=== PATIENT | male | born 1955 | race Caucasian/White ===

== ENCOUNTER 2020-08-03 09:46 | Inpatient (IN) ==
--- NOTE | 2020-07-02 13:14 | PAT Medication Instructions ---
Medication Instructions Date of Service July 02, 2020 Home Medications diltiazem HCl 240 mg PO QAM omeprazole 40 mg PO QAM Take morning of surgery With a small sip of water, OTHERWISE NOTHING TO EAT OR DRINK AFTER MIDNIGHT: diltiazem HCl 240 mg PO QAM omeprazole 40 mg PO QAM Other Notes If you have any questions please call us at [phone] or [phone] or [phone] or [phone]
--- NOTE | 2020-07-05 11:22 | Anesthesiology Consultation ---
Date of Service July 05, 2020 Assessment & Plan (1) Encounter for pre-operative examination: COVID Status: As of 07/05 assessment, patient denies travel to endemic area, known exposure/sick contacts, or symptoms of COVID19. Patient instructed that they and their household members must follow strict social distancing guidelines, wear a mask in public and avoid travel for 14 days prior to surgery. Preoperative COVID19 testing to be completed prior to surgery per surgeon's arra ngements. Patient made aware to self-isolate as much as possible between COVID testing and surgery. Chart Review Chart Review: Acceptable Risk for Surgery and Patient seen in Pre Admission Testing Teaching & Discussion Instructed NPO after midnight before surgery, except medications with 15 cc of water. Medication instructions provided according to the PAT guidelines. History Surgery Operation Date: 08/03/20 08:35 Proposed Procedures p Right Total Knee Arthroplasty - Pranay Pardo DO Height/Weight Height: 5 ft 8 in Weight: 101.1 kg Allergies Allergy/AdvReac Type Severity Reaction Status Date / Time No Known Allergies Allergy Verified 06/29/20 09:17 Medications Home Medications Medication Instructions Recorded Confirmed Last Taken diltiazem HCl 240 mg PO QAM 06/29/20 06/29/20 Unknown omeprazole 40 mg PO QAM 06/29/20 06/29/20 Unknown Past Medical History Medical History GERD (gastroesophageal reflux disease) Hypertension Exercise / Class Metabolic Activity II 4-5 Yardwork/Stairs/Walk up hill (Does 1 FOS many times daily without limiting CP or SOB) Past Surgical History Surgical History History of colonoscopy X MULTIPLE Past Anesthesia History No Hx of Anesthesia Complications and No Family Hx of Anesthesia Complications History of PONV No Hx of PONV and No Hx of Motion Sickness Social History Smoking Status: Never smoker Do You Dip or Chew Tobacco: No Hx Alcohol Use: No Hx Substance Use: No Review of Systems +occasional heart palpitations Pt denies any recent chest pain, shortness of breath, cough, fever, URI, or uncontrolled acid reflux. Physical Exam Vital Signs BP: 164/90 P: 62bpm SPO2: 97% RA T: 98.2 F R: 16 ENMT Mouth: no dental restorations, no chipped teeth and no loose teeth Thyromental Distance: > or= 3.5 Finger Breadths (3.5) Mallampati Class: I Neck normal visual inspection; neck extension not limited Respiratory normal respiratory effort Auscultation: lungs clear to auscultation bilaterally Cardiovascular Rate/Rhythm: regular rhythm and + bradycardic Heart Sounds: no murmur Vessels: no carotid bruit Extremities: no edema Testing Laboratory Results 07/05/20 11:35 07/05/20 11:35 PT 10.8 Seconds (9.0-12.0) 07/05/20 11:35 INR 1.0 (0.9-1.1) 07/05/20 11:35 APTT 30.8 Seconds (21.0-31.0) 07/05/20 11:35 Hemoglobin A1c 5.5 % (4.5-5.6) 07/05/20 11:35 Urine Color Yellow 07/05/20 11:35 Urine Appearance Clear (Clear) 07/05/20 11:35 Urine pH 6.0 (4.5-7.5) 07/05/20 11:35 Ur Specific [place] 1.016 (1.000-1.030) 07/05/20 11:35 Urine Protein Negative (Negative) 07/05/20 11:35 Urine Glucose (UA) Negative (Negative) 07/05/20 11:35 Urine Ketones Negative (Negative) 07/05/20 11:35 Urine Nitrite Negative (Negative) 07/05/20 11:35 Ur Leukocyte Esterase Negative (Negative) 07/05/20 11:35 Blood Type A Positive 07/05/20 11:35 Antibody Screen NEGATIVE 07/05/20 11:35 *surgeon's office flagged re: elevated WBC count. Electrocardiogram Date: 07/05/20 Findings: + SB @ (56bpm) Chest X-Ray Date: 07/05/20 Findings: + NAD
--- NOTE | 2020-07-05 11:55 | XRay Report ---
XR chest Pre-admission PA/Lat CLINICAL HISTORY: pat preoperative COMPARISON STUDY: No previous studies for comparison. FINDINGS: The bones soft tissues and hemidiaphragms are normal. The cardiomediastinal silhouette is n ormal. The lungs are clear. The pulmonary vasculature is normal. IMPRESSION: Negative chest. ACT 112: Negative or not required by law. The above report was generated using voice recognition software. It may contain grammatical, syntax or spelling errors. Electronically signed by: Angel Lala M.D. 07/05/2020 11:53 AM
[2020-07-05 13:22] LABS: Basophils # (auto) 0.01 K/uL (0-0.2); Basophils % (auto) 0.1 %; Eosinophils # (auto) 0.05 K/uL (0-0.5); Eosinophils % (auto) 0.4 %; Hematocrit (blood only) 47.4 % (42-52); Hemoglobin 16.5 g/dL (14.0-18.0); Immature Granulocytes # (auto) 0.06 K/uL (0.00-0.02); Immature Granulocytes % (auto) 0.5 %; Lymphocytes # (auto) 3.02 K/uL (1.2-3.4); Lymphocytes % (auto) 23.9 %; Mean Corpuscular Hemoglobin 30.8 pg (25-34); Mean Corpuscular Hgb Conc 34.8 g/dL (32-36); Mean Corpuscular Volume 88.4 fL (80-100); Mean Platelet Volume 10.9 fL (7.4-10.4); Monocytes # (auto) 1.53 K/uL (0.11-0.59); Monocytes % (auto) 12.1 %; Neutrophils # (auto) 7.99 K/uL (1.4-6.5); Platelet Count 233 K/uL (130-400); RDW Coefficient of Variation 14.5 % (11.5-14.5); RDW Standard Deviation 46.8 fL (36.4-46.3); Red Blood Count 5.36 M/uL (4.7-6.1); White Blood Count 12.66 K/uL (4.8-10.8)
[2020-07-05 13:30] LABS: Appearance Urine Clear (Clear); Bilirubin Urine Negative (Negative); Blood Urine Negative (Negative); Color Urine Yellow; Glucose Urine UA Negative (Negative); Ketones Urine Negative (Negative); Leukocyte Esterase Urine Negative (Negative); Nitrite Urine Negative (Negative); Protein Urine Negative (Negative); Specific Gravity Urine 1.016 (1.000-1.030); Urobilinogen Urine Negative (Negative)
[2020-07-05 13:34] LABS: Partial Thromboplastin Ratio 1.1; Partial Thromboplastin Time 30.8 Seconds (21.0-31.0); Prothrombin Time 10.8 Seconds (9.0-12.0)
[2020-07-05 13:36] LABS: Albumin Level 3.7 gm/dl (3.4-5.0); BUN Creatinine Ratio 20.9 (10-20); Creatinine Clr Calc Pharmacy 80.8 ml/min; Est GFR (African American) 85.9; Est GFR (Non-African American) 74.1; Potassium 3.7 mmol/L (3.5-5.1)
[2020-07-05 14:14] LABS: Estimated Average Glucose 111 mg/dl; Hemoglobin A1C 5.5 % (4.5-5.6)
--- NOTE | 2020-07-05 22:47 | Electrocardiogram Report ---
Test Reason : Blood Pressure : / mmHG Vent. Rate : 056 BPM Atrial Rate : 056 BPM P-R Int : 160 ms QRS Dur : 082 ms QT Int : 424 ms P-R-T Axes : 056 065 028 degrees QTc Int : 409 ms Sinus bradycardia Otherwise normal ECG No previous ECGs available Confirmed by Jaya Singh ([id number]) on 07/05/2020 10:46:47 PM Referred By: Pranay Pardo Confirmed By:Jaya Singh
--- NOTE | 2020-07-16 08:55 | History & Physical Report ---
Date of Service July 16, 2020 date of procedure: 08/03/20 Procedure: Right Total Knee Arthroplasty Assessment & Plan (1) Arthritis of right knee: patient has advanced DJD bilateral knees, has had previous visco x 2 series without any relief, his right knee is his most painful, he would like to proceed with a Right TKA at [facility]. The risks and benefits have been discussed including, but not limited to, risk of infection, nerve injury, stiffness, loss of motion, failure to improve, etc. Reasonable outcomes and options of treatment were discussed. An explanation of appropriate alternatives to the procedure that may be advantageous were discussed and their risks and benefits, as well as the risks and benefits of not proceeding with treatment. I offered to answer any additional inquiries concerning the treatment involved. All the patient's questions were answered. The patient is agreeable, understanding of the treatment plan and alternatives, and wishes to proceed with the treatment plan. History of Present Illness Chief Complaint: Right knee pain Primary Care Provider: Mecca George Obey Whitehead is a 65 year old male, presents for pre op prior to a right total knee replacement at [facility]. He presents with pain and stiffness in the right knee for many years, He states that the symptoms have been chronic non-traumatic. His symptoms occur constantly with intermittent worsening. Currently the patient states that the symptoms are moderate and his pain is described as aching and sometimes sharp. He rates his current pain as 6/10. The symptoms are aggravated by daily activities. He has previous visco injections without much relief, has tried previous NSAIDs as well as tylenol without relief. Allergies Allergy/AdvReac Type Severity Reaction Status Date / Time No Known Allergies Allergy Verified 06/29/20 09:17 Home Medications Home Medications Medication Instructions Recorded Confirmed Type diltiazem HCl 240 mg PO QAM 06/29/20 06/29/20 History omeprazole 40 mg PO QAM 06/29/20 06/29/20 History Past Med/Surg History Medical History GERD (gastroesophageal reflux disease) Hypertension Surgical History History of colonoscopy X MULTIPLE Social History Smoking Status: Never smoker Second Hand Exposure: Yes (FATHER SMOKED); Hx Alcohol Use: No Hx Substance Use: No Preferred Language: British Communication Ability: Effective Foreign Food Cook Specialty Required: No Beliefs That Will Affect Care: None Current Living Situation: Spouse Feels Safe at Home: Yes Review of Systems Review of Systems: All systems reviewed & are unremarkable except as noted in HPI & below Constitutional: no fever, no chills and no sweats Respiratory: no cough and no dyspnea Cardiovascular: no chest pain, no dyspnea and no orthopnea Gastrointestinal: no abdominal pain, no nausea and no vomiting Musculoskeletal: as per Subjective / HPI Physical Exam Physical Exam: Ht: 5ft 8in Wt: 101.1kg Constitutional: WD/WN, vitals as above no acute distress Respiratory: normal respiratory effort, lungs clear to auscultation no respiratory distress, no labored breathing and does not use accessory muscles Cardiovascular: RRR, no murmur, no edema Gastrointestinal (Abdomen): normal bowel sounds, soft, nontender, no hepatosplenomegaly Musculoskeletal: Knee: + knee abnormal to inspection (Right knee- ), + effusion (+1 effusion), + limited ROM of knee (ROM 0/3/110), + knee ROM with crepitation, + joint line tenderness (medial joint line) and + Cathleen's sign positive; no deformity, no skin erythema, no ecchymosis, no valgus laxity, no varus laxity, anterior drawer test negative, Lyndsay's sign negative and pivot shift test negative Results & Data Results & Data ([facility]) Laboratory Results Laboratory Results WBC 12.66 K/uL (4.8-10.8) H 07/05/20 11:35 RBC 5.36 M/uL (4.7-6.1) 07/05/20 11:35 Hgb 16.5 g/dL (14.0-18.0) 07/05/20 11:35 Hct 47.4 % (42-52) 07/05/20 11:35 MCV 88.4 fL (80-100) 07/05/20 11:35 MCH 30.8 pg (25-34) 07/05/20 11:35 MCHC 34.8 g/dL (32-36) 07/05/20 11:35 RDW Std Deviation 46.8 fL (36.4-46.3) H 07/05/20 11:35 RDW Coeff of Mayelin 14.5 % (11.5-14.5) 07/05/20 11:35 Plt Count 233 K/uL (130-400) 07/05/20 11:35 MPV 10.9 fL (7.4-10.4) H 07/05/20 11:35 Immature Gran % (Auto) 0.5 % 07/05/20 11:35 Neut % (Auto) 63.0 % 07/05/20 11:35 Lymph % (Auto) 23.9 % 07/05/20 11:35 Carbon % (Auto) 12.1 % 07/05/20 11:35 Eos % (Auto) 0.4 % 07/05/20 11:35 Baso % (Auto) 0.1 % 07/05/20 11:35 Neut # (Auto) 7.99 K/uL (1.4-6.5) H 07/05/20 11:35 Lymph # (Auto) 3.02 K/uL (1.2-3.4) 07/05/20 11:35 Carbon # (Auto) 1.53 K/uL (0.11-0.59) H 07/05/20 11:35 Eos # (Auto) 0.05 K/uL (0-0.5) 07/05/20 11:35 Baso # (Auto) 0.01 K/uL (0-0.2) 07/05/20 11:35 Immature Gran # (Auto) 0.06 K/uL (0.00-0.02) H 07/05/20 11:35 PT 10.8 Seconds (9.0-12.0) 07/05/20 11:35 INR 1.0 (0.9-1.1) 07/05/20 11:35 APTT 30.8 Seconds (21.0-31.0) 07/05/20 11:35 PTT Ratio 1.1 07/05/20 11:35 Sodium 141 mmol/L (136-145) 07/05/20 11:35 Potassium 3.7 mmol/L (3.5-5.1) 07/05/20 11:35 Chloride 108 mmol/L (98-107) H 07/05/20 11:35 Carbon Dioxide 25 mmol/L (21-32) 07/05/20 11:35 Anion Gap 8.0 (3-11) 07/05/20 11:35 BUN 22 mg/dl (7-18) H 07/05/20 11:35 Creatinine 1.05 mg/dl (0.6-1.4) 07/05/20 11:35 Est Cr Clr Drug Dosing 80.8 ml/min 07/05/20 11:35 Est GFR ( Amer) 85.9 07/05/20 11:35 Est GFR (Non-Af Amer) 74.1 07/05/20 11:35 BUN/Creatinine Ratio 20.9 (10-20) H 07/05/20 11:35 Glucose 70 mg/dl (70-99) 07/05/20 11:35 Estimat Average Glucose 111 mg/dl 07/05/20 11:35 Hemoglobin A1c 5.5 % (4.5-5.6) 07/05/20 11:35 Calcium 9.0 mg/dl (8.5-10.1) 07/05/20 11:35 Albumin 3.7 gm/dl (3.4-5.0) 07/05/20 11:35 Urine Color Yellow 07/05/20 11:35 Urine Appearance Clear (Clear) 07/05/20 11:35 Urine pH 6.0 (4.5-7.5) 07/05/20 11:35 Ur Specific [place] 1.016 (1.000-1.030) 07/05/20 11:35 Urine Protein Negative (Negative) 07/05/20 11:35 Urine Glucose (UA) Negative (Negative) 07/05/20 11:35 Urine Ketones Negative (Negative) 07/05/20 11:35 Urine Blood Negative (Negative) 07/05/20 11:35 Urine Nitrite Negative (Negative) 07/05/20 11:35 Urine Bilirubin Negative (Negative) 07/05/20 11:35 Urine Urobilinogen Negative (Negative) 07/05/20 11:35 Ur Leukocyte Esterase Negative (Negative) 07/05/20 11:35 Blood Type A Positive 07/05/20 11:35 Antibody Screen NEGATIVE 07/05/20 11:35 Diagnostic Findings Right Knee X-ray: Right knee series showing advanced degenerative changes to the right knee, narrowing of the medial compartment and patello-femoral joint with patellar spurring noted, findings showing joint space narrowing of the medial compartment and patello-femoral joint, osteophyte formation and subchondral sclerosis noted. overall varus alignment. no acute bony pathology noted.
[~2020-08-03 09:46] MED LIST: ACETAMINOPHEN 500 MG TAB PO SCH; BUPIVACAINE 0.5 % 5 MG/1 ML PF 10ML VIAL ONE; CEFAZOLIN 2000MG 2,000 MG/15 ML SYR IV SCH; CeleBREX 200 MG CAP PO SCH; EPINEPHrine INJ 1 MG/ML AMP ONE; FAMOTIDINE 20 MG TAB PO SCH; GABAPENTIN 300 MG CAP PO SCH; LR 500ML BOLUS, THEN 15ML/HR IV SCH; METOCLOPRAMIDE HCL 10 MG TABLET PO SCH; ROPIVACAINE 0.5% 5 MG/ML 30 ML VIAL ONE; ROPIVACAINE 0.5% HCL/PF 150 MG, BUPIVACAINE 0.5% MPF 30 ML, EPINEPHrine 30MG/30ML (OR U... INSTIL SCH; TRANEXAMIC ACID 1,000 MG **IV Intra-op IV SCH; TRANEXAMIC ACID 1,000 MG **IV Pre-op IV SCH; dexAMETHasone 4 MG TAB PO SCH
[2020-08-03] MEDS ORDERED: LIDOCAINE HCL 2% 2 ML VIAL/AMP(20MG/ML) INFIL ONE (10:44)
[2020-08-03] MEDS ORDERED: PROPOFOL IV EMULSION 10 MG/ML 20 ML VIAL IV ONE (10:44)
[2020-08-03] MEDS ORDERED: fentaNYL citrate 100 MCG/2 ML VIAL ONE ×2 (10:45→13:15)
[2020-08-03] MEDS ORDERED: MIDAZOLAM HCL 1 MG/ML 2ML VIAL ONE ×2 (10:45→11:43)
--- NOTE | 2020-08-03 11:14 | History & Physical Bridge Note ---
Date of Service August 03, 2020 History & Physical Bridge Note I have examined the patient, reviewed the History & Physical and in the interval since the performance of the History & Physical I have noted the following changes of clinical significance: no changes noted
[2020-08-03] MEDS ORDERED: ORTHO JOINT ANESTHETIC ONE (11:43)
[2020-08-03] MEDS ORDERED: BACITRACIN INJ 50,000 UNIT VIAL ONE (11:44)
[2020-08-03] MEDS ORDERED: ATROPINE SULFATE 0.1 MG/ML 10ML SYR IV PRN (13:32)
[2020-08-03] MEDS ORDERED: ONDANSETRON INJ 2 MG/ML 2 ML VIAL IV PRN ×2 (13:32→15:37)
[2020-08-03] MEDS ORDERED: fentaNYL citrate 100 MCG/2 ML VIAL IV PRN (13:32)
[2020-08-03] MEDS ORDERED: PROMETHAZINE HCL 12.5 MG in SODIUM CHLORIDE 0.9% 50 ML IV PRN (13:32)
[2020-08-03] MEDS ORDERED: LABETALOL HCL IV 5 MG/ML 20ML IV PRN (13:32)
[2020-08-03] MEDS ORDERED: FLUMAZENIL 0.1 MG/1 ML 10 ML VIAL IV PRN (13:32)
[2020-08-03] MEDS ORDERED: NALOXONE HCL 0.4 MG/1 ML VIAL/CARP IV PRN ×2 (13:32→15:37)
[2020-08-03] MEDS ORDERED: HYDROmorphone INJ 1 MG/ML SYRINGE IV PRN ×2 (13:32→15:37)
[2020-08-03] MEDS ORDERED: ePHEDrine sulfate 50 MG/ML AMP IV PRN (13:32)
--- NOTE | 2020-08-03 13:51 | Operative Report ---
Post Operative Report Pre & Post Diagnosis Operation Date: 08/03/20 12:35 Pre-Op Diagnosis: Unilateral Primary Osteoarthritis, Right Knee Post-Op Diagnosis: Unilateral Primary Osteoarthritis, Right Knee I identified the patient and participated in the time-out.: Yes Procedure Operation Date: 08/03/20 12:35 Actual Procedures p Right Total Knee Arthroplasty(Right) utilizing [employer] journey 2 patient matched total knee arthroplasty size 5 femur 4 tibia 13 polyethylene 32 oval patella- Pranay Pardo DO Surgeon Pranay Pardo DO Senior Managing Director [place] Estimated Blood Loss 5 Findings Consistent with Post-Op Diagnosis Patient resents severe end-stage DJD varus alignment subchondral sclerosis marginal osteophytes eburnated [id number] with a varus alignment and a moderate to large effusion Specimens Bone and cartilage Drains Medium bore Hemovac Anesthesia Type General Complications none Disposition Accompanied Patient To Recovery: No Disposition: Recovery Room Indications Patient presents with severe end-stage DJD of the right knee no response to conservative management the patient fell attempted corticosteroid injection Visco supplementation relative rest activity modification patient resents for right total knee arthroplasty the above intraoperative findings were noted Description of Procedure After proper prepping and draping of the Right lower extremity anterior midline incision was made over the region of the extensor extensor mechanism after meticulous hemostasis was obtained and maintained in subcutaneous tissues a medial parapatellar incision was made The patella was subluxed lateralward the medial lateral gutter were cleaned from any hypertrophic synovitis and scar tissue of the distal femoral block was placed and the distal femoral osteotomy cut was made subsequently the chamfers anterior and posterior osteotomy cuts were made utilizing the 4-in-1 block the tibia was subsequently subluxed anteriorward medial and ateral meniscal remnants were excised in their entirety remnants of the anterior and posterior cruciate ligaments were excised in their entirety excellent exposure of the proximal tibia was obtained the tibial osteotomy guide was placed on the proximal tibial osteotomy cut was made once again the knee was irrigated with copious amounts of sterile saline solution the patella was subsequently everted lateralward thickened scar tissue around the patella was removed the patella was subsequently cut utilizing a freehand technique and was drilled prepared for final preparation and placement of patella socially flexion-extension gaps were checked and the equal and symmetric trials were placed to the appropriate femoral and tibial trials with poly-spacer being placed for equal flexion and extension gaps and full range of motion including extension to 0 and flexion to 140 the trial components after having been taken to recovery range of motion was subsequently removed meticulous hemostasis was obtained and maintained subsequently a knee block injection of joint cocktail including ropivacaine 0.5% 150 mg. Bupivacaine 0.5% epinephrine 1-200,030 mL's toradol 30 mg dexamethasone 4 mg ketamine 10 mg clonidine 100 micrograms normal saline solution 30 mg was infiltrated into the soft tissues of the posterior knee medial lateral gutters and periosteal synovium special attention was paid to protect neurovascular structures at all times subsequently trial components having been removed the knee was irrigated with sterile saline solution. debris was removed the proximal tibia was subsequently prepared and was made ready for the placement of the tibial component tibial component was also cemented and tamped into position the femoral component was subsequently placed and cemented in the position the patellar component was subsequently cemented in position because hemostasis once again obtained and maintained wound having been thoroughly irrigated with debridement and debridement lavage was performed as well as a medial parapatellar incision closed with #1 Vicryl in interrupted fashion subcutaneous was closed with #2 Vicryl skin was closed with skin clips. PA-C was necessary for prepping and drapping as well as wound closure of deep fascia Sub cutaneous tissue and skin and was necessary for the case. A sterile compressive dressing was placed patient was taken to recovery in stable condition of report dictated by Edvin I attest to the content of the Intraoperative Record and any orders documented therein. Any exceptions are noted below. I attest to the content of the Intraoperative Record and any orders documented therein. Any exceptions are noted below.
[2020-08-03] MEDS ORDERED: ONDANSETRON INJ 2 MG/ML 2 ML VIAL ONE (14:07)
--- NOTE | 2020-08-03 15:06 | Anesthesiology Progress Note ---
Date of Service August 03, 2020 Anesthesia Post Procedure Vital Signs Vital Signs: Temp Pulse Pulse Resp BP Pulse Ox 08/03/20 14:40 77 12 124/69 94 08/03/20 14:33 98.6 F 89 17 108/74 92 08/03/20 11:21 98.1 F 71 18 154/89 H 96 08/03/20 10:03 98.4 F 73 18 177/94 H 96 Pain Intensity Right Knee: Pain Intensity: 4 Transfer of Care Handoff Completed per policy Notes Mental Status: alert / awake / arousable and participated in evaluation Patient Amnestic to Procedure: Yes Nausea / Vomiting: adequately controlled Pain: adequately controlled Airway Patency, RR, SpO2: stable & adequate BP & HR: stable & adequate Hydration State: stable & adequate Anesthetic Complications: no major complications apparent and Pt Satisfied with anesthetic care
--- NOTE | 2020-08-03 15:16 | XRay Report ---
RIGHT KNEE 2 VIEWS History: Right total knee arthroplasty. Degenerative arthritis. Postop. FINDINGS: The patient is status post a right total knee arthroplasty. The hardware is intact. No frac ture or dislocation. Surgical drains are in place. IMPRESSION: Right total knee arthroplasty. No evidence for hardware complication. ACT 112: Negative or not required by law. Electronically signed by: Maurizio Albrecht M.D. 08/03/2020 3:14 PM
[2020-08-03] MEDS ORDERED: bisacodyL 10 MG SUPP PR PRN (15:37)
[2020-08-03] MEDS ORDERED: OXYCODONE HCL IR 5 MG TAB (IMMEDIATE RELEASE) PO PRN (15:37)
[2020-08-03] MEDS ORDERED: MAGNESIUM HYDROXIDE SUSP 30 ML UDC PO PRN (15:37)
[2020-08-03] MEDS ORDERED: METOCLOPRAMIDE HCL INJ 5 MG/ML 2 ML VIAL IV PRN (15:37)
[2020-08-03] MEDS: SODIUM CHLORIDE 0.9% 1000ML 1,000 ML IV SCH (16:34)
[2020-08-03] MEDS: KETOROLAC TROMETHAMINE 15 MG/ML VIAL IV SCH (17:11)
[2020-08-03] MEDS: DOCUSATE SODIUM 100 MG CAP PO SCH (20:21)
[2020-08-03] MEDS: CEFAZOLIN 2000MG 2,000 MG/15 ML SYR IV SCH (20:21)
[2020-08-03] MEDS: ASPIRIN 81 MG ECTAB PO SCH (20:22)
[2020-08-03] MEDS ORDERED: SENNA 8.6 MG TAB PO SCH (21:00)
[2020-08-03] MEDS: ACETAMINOPHEN 500 MG TAB PO SCH (21:51)
[2020-08-04] MEDS: KETOROLAC TROMETHAMINE 15 MG/ML VIAL IV SCH ×3 (00:32→11:45)
[2020-08-04] MEDS: SODIUM CHLORIDE 0.9% 1000ML 1,000 ML IV SCH (02:06)
[2020-08-04] MEDS: CEFAZOLIN 2000MG 2,000 MG/15 ML SYR IV SCH (03:19)
[2020-08-04] MEDS: ACETAMINOPHEN 500 MG TAB PO SCH (05:42)
[2020-08-04 06:30] LABS: Hematocrit (blood only) 42.9 % (42-52); Hemoglobin 14.6 g/dL (14.0-18.0); Mean Corpuscular Hemoglobin 30.2 pg (25-34); Mean Corpuscular Volume 88.8 fL (80-100); Mean Platelet Volume 10.2 fL (7.4-10.4); Platelet Count 233 K/uL (130-400); RDW Coefficient of Variation 14.3 % (11.5-14.5); RDW Standard Deviation 46.5 fL (36.4-46.3); Red Blood Count 4.83 M/uL (4.7-6.1); White Blood Count 17.74 K/uL (4.8-10.8)
[2020-08-04 06:58] LABS: BUN Creatinine Ratio 18.4 (10-20); Calcium 8.5 mg/dl (8.5-10.1); Creatinine Clr Calc Pharmacy 74.4 ml/min; Est GFR (African American) 77.8; Est GFR (Non-African American) 67.1; Potassium 4.3 mmol/L (3.5-5.1)
--- NOTE | 2020-08-04 07:37 | Orthopedic Progress Note ---
Date of Service August 04, 2020 Assessment & Plan (1) History of total right knee replacement: POD #1 s/p Right TKA pt/ot dvt proph with [facility]/SCD/ASA plan for d/c home with HHPT, recheck later today for poss discharge. Admission and Anticipated Discharge Date Admission Date: August 03, 2020 Subjective POD #1 s/p Right TKA Review of Systems Constitutional: no fever, no chills and no sweats Respiratory: no cough and no dyspnea Cardiovascular: no chest pain and no dyspnea Gastrointestinal: no abdominal pain, no nausea and no vomiting Physical Exam Physical Exam: Vital Signs Temp 36.8 C 08/04/20 07:02 Pulse 86 08/04/20 07:02 Resp 16 08/04/20 07:02 BP 166/80 H 08/04/20 07:02 Pulse Ox 95 08/04/20 07:02 Intake & Output 08/03/20 08/04/20 08/04/20 18:59 06:59 18:59 Intake Total 1800 / 3500 1700 / 3500 Output Total 345 / 2145 1800 / 2145 200 / 200 Balance 1455 / 1355 -100 / 1355 -200 / -200 Weight 101 kg Intake: IV 1000 / 2000 1000 / 2000 Lr 1,000 ml @ 15 mls/hr IV . 800 / 800 Q24H [facility] Rx#:[id number] Nss 1000ML 1,0 00 ml @ 100 mls/ 1000 / 1000 hr IV .Q10H [facility] Rx#:[id number] TRANEXAMIC ACI D / 0.7% NACL 1, 200 / 200 000 mg In 100 ml @ 600 mls/hr IV TODAY@0600 [facility] Rx#:[id number] IV Perioperative 500 / 500 Oral 300 / 1000 700 / 1000 Output: Urine 300 / 1825 1525 / 1825 200 / 200 Estimated Blood Loss 5 / 5 Drain Output 40 / 315 275 / 315 Right Knee 40 / 315 275 / 315 Constitutional: WD/WN, vitals as above no acute distress Musculoskeletal: Right Leg: NVDI, calf SNT, negative shaina sign. DP palpable, able to wiggle toes/ankle movement without difficulty. dressing clean dry and intact. Results & Data ([facility]) Vital Signs (Past 12 Hours) Vital Signs Temp Pulse Pulse Resp BP Pulse Ox 08/04/20 07:02 36.8 C 86 16 166/80 H 95 08/04/20 03:07 37.0 C 71 18 117/69 93 08/03/20 23:17 36.9 C 68 18 124/68 91 Laboratory Results Laboratory Results WBC 17.74 K/uL (4.8-10.8) H 08/04/20 05:55 RBC 4.83 M/uL (4.7-6.1) 08/04/20 05:55 Hgb 14.6 g/dL (14.0-18.0) 08/04/20 05:55 Hct 42.9 % (42-52) 08/04/20 05:55 MCV 88.8 fL (80-100) 08/04/20 05:55 MCH 30.2 pg (25-34) 08/04/20 05:55 MCHC 34.0 g/dL (32-36) 08/04/20 05:55 RDW Std Deviation 46.5 fL (36.4-46.3) H 08/04/20 05:55 RDW Coeff of Mayelin 14.3 % (11.5-14.5) 08/04/20 05:55 Plt Count 233 K/uL (130-400) 08/04/20 05:55 MPV 10.2 fL (7.4-10.4) 08/04/20 05:55 Immature Gran % (Auto) 0.5 % 07/05/20 11:35 Neut % (Auto) 63.0 % 07/05/20 11:35 Lymph % (Auto) 23.9 % 07/05/20 11:35 [place] % (Auto) 12.1 % 07/05/20 11:35 Eos % (Auto) 0.4 % 07/05/20 11:35 Baso % (Auto) 0.1 % 07/05/20 11:35 Neut # (Auto) 7.99 K/uL (1.4-6.5) H 07/05/20 11:35 Lymph # (Auto) 3.02 K/uL (1.2-3.4) 07/05/20 11:35 [place] # (Auto) 1.53 K/uL (0.11-0.59) H 07/05/20 11:35 Eos # (Auto) 0.05 K/uL (0-0.5) 07/05/20 11:35 Baso # (Auto) 0.01 K/uL (0-0.2) 07/05/20 11:35 Immature Gran # (Auto) 0.06 K/uL (0.00-0.02) H 07/05/20 11:35 PT 10.8 Seconds (9.0-12.0) 07/05/20 11:35 INR 1.0 (0.9-1.1) 07/05/20 11:35 APTT 30.8 Seconds (21.0-31.0) 07/05/20 11:35 PTT Ratio 1.1 07/05/20 11:35 Sodium 140 mmol/L (136-145) 08/04/20 05:55 Potassium 4.3 mmol/L (3.5-5.1) 08/04/20 05:55 Chloride 110 mmol/L (98-107) H 08/04/20 05:55 Carbon Dioxide 23 mmol/L (21-32) 08/04/20 05:55 Anion Gap 7.0 (3-11) 08/04/20 05:55 BUN 21 mg/dl (7-18) H 08/04/20 05:55 Creatinine 1.14 mg/dl (0.6-1.4) 08/04/20 05:55 Est Cr Clr Drug Dosing 74.4 ml/min 08/04/20 05:55 Est GFR ( Amer) 77.8 08/04/20 05:55 Est GFR (Non-Af Amer) 67.1 08/04/20 05:55 BUN/Creatinine Ratio 18.4 (10-20) 08/04/20 05:55 Glucose 125 mg/dl (70-99) H 08/04/20 05:55 Estimat Average Glucose 111 mg/dl 07/05/20 11:35 Hemoglobin A1c 5.5 % (4.5-5.6) 07/05/20 11:35 Calcium 8.5 mg/dl (8.5-10.1) 08/04/20 05:55 Albumin 3.7 gm/dl (3.4-5.0) 07/05/20 11:35 Urine Color Yellow 07/05/20 11:35 Urine Appearance Clear (Clear) 07/05/20 11:35 Urine pH 6.0 (4.5-7.5) 07/05/20 11:35 Ur Specific [place] 1.016 (1.000-1.030) 07/05/20 11:35 Urine Protein Negative (Negative) 07/05/20 11:35 Urine Glucose (UA) Negative (Negative) 07/05/20 11:35 Urine Ketones Negative (Negative) 07/05/20 11:35 Urine Blood Negative (Negative) 07/05/20 11:35 Urine Nitrite Negative (Negative) 07/05/20 11:35 Urine Bilirubin Negative (Negative) 07/05/20 11:35 Urine Urobilinogen Negative (Negative) 07/05/20 11:35 Ur Leukocyte Esterase Negative (Negative) 07/05/20 11:35 Hepatitis C Ab Screen Neg (Neg) 08/03/20 10:10 Blood Type A Positive 07/05/20 11:35 Antibody Screen NEGATIVE 07/05/20 11:35 Diagnostic Findings RIGHT KNEE 2 VIEWS History: Right total knee arthroplasty. Degenerative arthritis. Postop. FINDINGS: The patient is status post a right total knee arthroplasty. The hardware is intact. No fracture or dislocation. Surgical drains are in place. IMPRESSION: Right total knee arthroplasty. No evidence for hardware complication.
[2020-08-04] MEDS: ASPIRIN 81 MG ECTAB PO SCH (08:31)
[2020-08-04] MEDS: DOCUSATE SODIUM 100 MG CAP PO SCH (08:31)
[2020-08-04] MEDS ORDERED: dilTIAZem HCL 240 MG CAPCR PO SCH (09:00)
[2020-08-04] MEDS ORDERED: MULTIVITAMIN TAB PO SCH (09:00)
[2020-08-04] MEDS ORDERED: PANTOprazole 40 MG TAB PO SCH (09:15)
[2020-08-04] MEDS ORDERED: CeleBREX 200 MG CAP PO SCH (21:00)
--- NOTE | 2020-08-05 07:57 | Discharge Summary ---
Date of Service date of discharge: August 04, 2020 date of admission: 08-03-20 Admission HPI Per Admitting Provider Obey Whitehead is a 65 year old male, presents for pre op prior to a right total knee replacement at [facility]. He presents with pain and stiffness in the right knee for many years, He states that the symptoms have been chronic non-traumatic. His symptoms occur constantly with intermittent worsening. Currently the patient states that the symptoms are moderate and his pain is described as aching and sometimes sharp. He rates his current pain as 6/10. The symptoms are aggravated by daily activities. He has previous visco injections without much relief, has tried previous NSAIDs as well as tylenol without relief. Principal Diagnosis right knee arthritis Discharge Exam Vital Signs Temp 36.8 C 08/04/20 11:12 Pulse 74 08/04/20 11:12 Resp 18 08/04/20 11:12 BP 137/70 08/04/20 11:12 Pulse Ox 97 08/04/20 11:12 Intake & Output 08/04/20 08/05/20 08/05/20 18:59 06:59 18:59 Output Total 200 / 200 Balance -200 / -200 Weight 101 kg Output: Urine 200 / 200 Constitutional WD/WN, vitals as above no acute distress Musculoskeletal right knee: NVDI, calf SNT, negative shaina sign. DP palpable, able to wiggle toes/ankle movement without difficulty. Prineo dressing clean dry and intact. expected post-operative bruising noted. Discharge Data Allergies Allergy/AdvReac Type Severity Reaction Status Date / Time No Known Allergies Allergy Verified 08/03/20 10:00 Consultations 08/03/20 15:37 Consult Case Management - Discharge Planning Routine Procedures Performed Operation Date: 08/03/20 12:35 Actual Procedures p Right Total Knee Arthroplasty(Right) - Pranay Pardo DO Ordered Studies 08/03/20 05:00 US - OR guided needle placemen Routine Hospital Course (1) History of total right knee replacement: POD #1 s/p Right TKA pt/ot dvt proph with BATOOL/SCD/ASA plan for d/c home with HHPT, recheck later today for poss discharge. Total Time Total Time Spent Total Time Spent (In Minutes): 20 Total Time Includes: Examination of the Patient, Discharge Planning and Medication Reconciliation Discharge Plan Discharge Items Patient Disposition: Home - Home Health Services Reason For Visit: Unilateral Primary Osteoarthritis, Right Knee Discharge Diagnosis: s/p Right total knee replacement Condition on Discharge: Good Activity: Per Instructions section Lifting: Wait until after follow-up appointment Weightbearing Comment: WBAT with walker Non-emergency contact: Surgeon Call non-emergency contact if: you have any medication questions, your pain is not controlled, your temperature is above 101, your wound has increased redness, your wound has increased drainage and your wound pain has increased Follow-up/Referrals: Mecca George D.O. [Primary Care Provider] - Diet: Regular Addtl Attending Provider Instructions: ACTIVITY RECOMMENDATIONS: SELF CARE INSTRUCTIONS AFTER TOTAL KNEE REPLACEMENT A. You may need to continue a physical therapy program after discharge from the hospital. There are several options available to you. Your doctor will assist you in selecting the best one for you. 1. An out-patient facility 2 to 3 times a week for therapy or home therapy. 2. Continue working on all exercises taught to you in the hospital. Your goals should be to increase bending of your knee to 90 degrees and beyond and to fully straighten your knee. B. You may progress at your own pace from walking with a walker or crutches to a cane; then to no assistive devices. C. Make walking a part of your daily routine. Be up as much as comfortable with rest periods throughout the day. Rest with leg elevation is very important. Use the ice wrap frequently for the first 3-4 weeks. D. There are no restrictions on activities. You may ride in a car, shop, participate in router operator radial and all social activities. E. Wear the long elastic stockings (BATOOL hose) 20 hours a day for 2 weeks after surgery. They can be removed several times a day for laundering and for a bath. F. You may shower, no tub baths until cleared by your doctor. SPECIAL CARE INSTRUCTIONS: VERY IMPORTANT TO READ AND REVIEW A. There are a few signs you need to watch for after you are home. Call [facility] if you notice any of the followin. Increased severe knee pain. Some pain is expected especially when you exercise. 2. Increased swelling in your leg or knee; pain or swelling of the calf muscle in either lower leg. 3. Any fluid drainage from the incision. 4. Shortness of breath or chest pain. B. Please call [facility] at if you have any concerns or questions about your operation or recovery. The doctor or his nurse will return your call promptly. C. You must take antibiotics before dental work, bladder, bowel or other surgery. Your doctor will provide you with a permanent care to carry describing this precaution. IMPORTANT: * REMEMBER TO TAKE ASPIRIN, 81 MG, TWICE DAILY FOR 4 WEEKS UNLESS OTHERWISE DIRECTED. THIS IS YOUR BLOOD THINNER. * HIGH RISK PATIENTS MAY BE PRESCRIBED A STRONGER BLOOD THINNER. THIS WILL BE PROVIDED AT DISCHARGE. * CALL IF INCREASED PAIN, REDNESS, DRAINAGE OR FEVER GREATER THAT 101. * WEAR BATOOL HOSE 20 HOURS PER DAY FOR 2 WEEKS. * DERMABOND Prineo- This is a mesh tape dressing that is covered with glue. It should remain in place until the incision is properly healed, usually 10-14 days. This dressing is designed to naturally slough off. You may trim the excess mesh tape as it peels off. Incision may be briefly wet in a shower. Dry immediately by blotting with a clean, dry towel. Do not bath or swim until instructed by your doctor. Do not scratch, rub, or pick at the dressing. Do not apply any topical ointments or lotions until dressing is completely removed and/or instructed by your doctor. There may be a small piece of suture material at one end of your incision. Do not pull or trim this. If it is bothersome or catching on clothing, you may cover it with a band-aid. IF INCISION IS LEAKING THROUGH DRESSING, CALL THE OFFICE . FOLLOW UP VISIT: If appointment is not already scheduled: Please call [facility] to make a follow-up appointment for 2 weeks after your surgery at . Pending Studies at Discharge: No Stand-Alone Forms: My markedup, Opioid Pain Management, Smoking Cessation Medications and DC Order Prescriptions: New celecoxib [Celebrex] 200 mg Capsule 200 mg PO BID 30 Days Qty: 60 RF: 0 aspirin 81 mg Tablet,Delayed Release (Dr/Ec) 81 mg PO BID 30 Days Qty: 60 RF: 0 acetaminophen 500 mg Tablet 1,000 mg PO Q8 21 Days Qty: 126 RF: 0 oxycodone 5 mg Tablet 5 - 10 mg PO Q6H PRN (Reason: pain) Qty: 30 RF: 0 docusate sodium 100 mg Capsule 100 mg PO BID 10 Days Qty: 20 RF: 0 cefadroxil 500 mg capsule 500 mg PO BID 10 Days Qty: 20 RF: 0 Continued diltiazem HCl 240 mg Capsule,Extended Release 24 Hr 240 mg PO QAM RF: 0 omeprazole 40 mg Capsule,Delayed Release(Dr/Ec) 40 mg PO QAM RF: 0 Discharge Orders: Discharge Order (Routine); Ordered 08/04/20 Ordered By: Angel Morfin/Other Patient Handouts: Preventing Deep Vein Thrombosis Admission Data Admit Date/Time: 08/03/20 15:03 Attending Provider: Pranay Pardo Admit Provider: Pranay Pardo Primary Care Provider: Mecca George Other Interventions: Discharge Summary Assessment (RN) Last Done: 08/04/20 11:35
== END 2020-08-04 14:05 | disposition home health service (06) | DRG 470 ==
LOC: 3E 09:46 → ASU 09:46 → OBSVTOIN 15:03

== ENCOUNTER 2021-03-02 04:57 | Observation (INO) ==
--- NOTE | 2020-10-11 07:32 | History & Physical Report ---
Date of Service October 11, 2020 Date of Surgery: 11/09/20 Procedure: Left Total Knee Arthroplasty Assessment & Plan (1) Osteoarthritis of left knee: Risks and benefits of procedure discussed in detail today, patient would like to proceed with a Left total knee replacement at [facility] as scheduled. will obtain medical clearance from Dr Colorado prior to surgery as well as obtain PATs at [facility]. Will place on ASA 81mg po bid x 1 month post op, f/u 2 weeks post op for routine post-operative care and x-ray, sooner if having any problems. will make arrangements for HHPT at the time of discharge. At this point in time, has failed conservative measures and would like to proceed with surgical intervention. The risks and benefits have been discussed including, but not limited to, risk of infection, nerve injury, stiffness, loss of motion, failure to improve, etc. Reasonable outcomes and options of treatment were discussed. An explanation of appropriate alternatives to the procedure that may be advantageous were discussed and their risks and benefits, as well as the risks and benefits of not proceeding with treatment. I offered to answer any additional inquiries concerning the treatment involved. All the patient's questions were answered. The patient is agreeable, understanding of the treatment plan and alternatives, and wishes to proceed with the treatment plan. History of Present Illness Chief Complaint: left knee pain Primary Care Provider: Mecca Astridcorina Obey is a 65 year old male who complains of left knee pain, presents for pre- op evaluation prior to a left total knee replacement by dr Pardo at [facility]. He complains of pain, decreased range of motion and stiffness in the left knee. He states that the symptoms have been chronic and non-traumatic. Currently the patient states that the symptoms are moderate-severe. The pain is described as aching, sharp and throbbing. his symptoms occur continuously. The symptoms are aggravated by ascending stairs, daily activities, first steps while awake walking. Prior NSAIDs include IBU and Aleve. he has been treated with previous visco and cortisone injections in the past without much relief. He just had his right knee replaced about 2 months ago and is doing well. Allergies Allergy/AdvReac Type Severity Reaction Status Date / Time No Known Allergies Allergy Verified 09/30/20 08:29 Home Medications Home Medications Medication Instructions Recorded Confirmed Type diltiazem HCl 240 mg PO QAM 06/29/20 09/30/20 History omeprazole 40 mg PO QAM 06/29/20 09/30/20 History oxycodone 5 - 10 mg PO Q6H PRN #30 tab 08/04/20 09/30/20 Rx Past Med/Surg History Medical History Arthritis GERD (gastroesophageal reflux disease) Hypertension Surgical History History of colonoscopy X MULTIPLE History of total knee replacement right Social History Smoking Status: Never smoker Second Hand Exposure: Yes (as kid); Do You Dip or Chew Tobacco: No; Tobacco Cessation Education Requested by Patient: No Hx Alcohol Use: No Hx Substance Use: No Preferred Language: Maltese Communication Ability: Effective Route Returner Required: No Beliefs That Will Affect Care: None marital status: Current Living Situation: Spouse Other Information That Helps Us Care for You: No Feels Safe at Home: Yes Safety Concerns: Feels Safe At This Time Assistive Devices: Glasses and Walker Review of Systems Review of Systems: All systems reviewed & are unremarkable except as noted in HPI & below Constitutional: no fever, no chills and no sweats Respiratory: no cough and no dyspnea Cardiovascular: no chest pain, no dyspnea and no orthopnea Gastrointestinal: no abdominal pain, no nausea and no vomiting Musculoskeletal: as per Subjective / HPI Physical Exam Physical Exam: HT: 5ft 8in WT: 100.7kg BP: 140/84 Constitutional: WD/WN, vitals as above no acute distress Respiratory: normal respiratory effort, lungs clear to auscultation no respiratory distress, no labored breathing and does not use accessory muscles Cardiovascular: RRR, no murmur, no edema Gastrointestinal (Abdomen): normal bowel sounds, soft, nontender, no hepatosplenomegaly Musculoskeletal: Knee: + knee abnormal to inspection (left knee- ), + effusion (+1 effusion), + limited ROM of knee (ROM 0/3/110), + knee ROM with crepitation, + joint line tenderness (medial joint line) and + Cathleen's sign positive; no deformity, no skin erythema, no ecchymosis, no valgus laxity, no varus laxity, anterior drawer test negative, Lyndsay's sign negative and pivot shift test negative Results & Data Results & Data ([facility]) Diagnostic Findings Left Knee X-ray: left knee series confirms advanced degenerative changes to the left knee, greatest medial compartments and patellofemoral joint, showing joint space narrowing, osteophyte formation and subchondral sclerosis. no acute bony pathology noted.
--- NOTE | 2020-10-25 11:28 | Anesthesiology Consultation ---
Date of Service October 25, 2020 Assessment & Plan (1) Encounter for pre-operative examination: Chart Review Chart Review: Acceptable Risk for Surgery (pending preop Covid testing ) and Patient NOT seen in Pre Admission Testing - Check coags AM DOS (not done preoperatively) Per nursing assessment 09/30/2020, patient denies any recent travel. No known Covid positive contacts or Covid related symptoms. Pt will be getting contacted by surgeon's office re: preop Covid testing. Right TKA 08/03/20= Done under [facility] and GA with LMA #5 iGel. Atraumatic insertion x 1. "Attempted SAB multiple times but unable secondary to bone and narrowing spaces" Seen by PCP 07/19/2020 (prior to 08/03/2020 right TKA) = " labs/CXR/EKG reviewed. Patient is medically cleared for proposed surgery." History Surgery Operation Date: 11/09/20 09:15 Proposed Procedures p Left Total Knee Arthroplasty - Pranay Pardo DO Height/Weight Height: 5 ft 8 in Weight: 100.698 kg Allergies Allergy/AdvReac Type Severity Reaction Status Date / Time No Known Allergies Allergy Verified 09/30/20 08:29 Medications Home Medications Medication Instructions Recorded Confirmed Last Taken diltiazem HCl 240 mg PO QAM 06/29/20 09/30/20 08/03/20 08:00 omeprazole 40 mg PO QAM 06/29/20 09/30/20 08/03/20 08:00 oxycodone 5 - 10 mg PO Q6H PRN #30 tab 08/04/20 09/30/20 Unknown Past Medical History Medical History (Updated 10/25/20 @ 11:42 by Berenice Pizarro PA-C) Arthritis GERD (gastroesophageal reflux disease) Hyperlipidemia Per records Hypertension Past Surgical History Surgical History History of colonoscopy X MULTIPLE History of total knee replacement right Social History Smoking Status: Never smoker Do You Dip or Chew Tobacco: No Hx Alcohol Use: No Hx Substance Use: No substance use type: does not use Testing Laboratory Results Laboratory Tests 10/11/20 10/11/20 10/11/20 11:19 11:19 11:19 WBC 9.68 Hgb 16.0 Hct 48.2 Plt Count 230 APTT 32.4 H Sodium 140 Potassium 4.0 Chloride 109 H Carbon Dioxide 26 BUN 31 H Creatinine 1.01 Glucose 83 Hemoglobin A1c 10/11/20 11:19 WBC Hgb Hct Plt Count APTT Sodium Potassium Chloride Carbon Dioxide BUN Creatinine Glucose Hemoglobin A1c 5.0 10/11/20= UA: negative T&S: A positive, antibody negative Electrocardiogram Date: 10/11/20 Findings: + NSR @ (64) Normal EKG. Chest X-Ray Date: 10/11/20 Findings: + NAD
--- NOTE | 2021-02-04 09:18 | History & Physical Report ---
Date of Service February 04, 2021 date of surgery: 03/02/21 Procedure: Left Total Knee Arthroplasty Assessment & Plan (1) Osteoarthritis of left knee: Risks and benefits of procedure discussed in detail today, patient would like to proceed with a Left total knee replacement at [facility] as scheduled. will obtain medical clearance from Dr Colorado prior to surgery as well as obtain PATs at [facility]. Will place on ASA 81mg po bid x 1 month post op, f/u 2 weeks post op for routine post-operative care and x-ray, sooner if having any problems. will make arrangements for HHPT at the time of discharge. At this point in time, has failed conservative measures and would like to proceed with surgical intervention. The risks and benefits have been discussed including, but not limited to, risk of infection, nerve injury, stiffness, loss of motion, failure to improve, etc. Reasonable outcomes and options of treatment were discussed. An explanation of appropriate alternatives to the procedure that may be advantageous were discussed and their risks and benefits, as well as the risks and benefits of not proceeding with treatment. I offered to answer any additional inquiries concerning the treatment involved. All the patient's questions were answered. The patient is agreeable, understanding of the treatment plan and alternatives, and wishes to proceed with the treatment plan. History of Present Illness Chief Complaint: left knee pain Primary Care Provider: Mecca Doris Barnhart is a 65 year old male who complains of left knee pain, presents for pre- op evaluation prior to a left total knee replacement by dr Pardo at [facility]. He complains of pain, decreased range of motion and stiffness in the left knee. He states that the symptoms have been chronic and non-traumatic. Currently the patient states that the symptoms are moderate-severe. The pain is described as aching, sharp and throbbing. his symptoms occur continuously. The symptoms are aggravated by ascending stairs, daily activities, first steps while awake walking. Prior NSAIDs include IBU and Aleve. he has been treated with previous visco and cortisone injections in the past without much relief. He just had his right knee replaced about 2 months ago and is doing well. Allergies Allergy/AdvReac Type Severity Reaction Status Date / Time No Known Allergies Allergy Verified 09/30/20 08:29 Home Medications Medication Instructions Recorded Confirmed Type diltiazem HCl 240 mg PO QAM 06/29/20 09/30/20 History omeprazole 40 mg PO QAM 06/29/20 09/30/20 History oxycodone 5 - 10 mg PO Q6H PRN #30 tab 08/04/20 09/30/20 Rx Past Med/Surg History Medical History Arthritis GERD (gastroesophageal reflux disease) Hyperlipidemia Per records Hypertension Surgical History History of colonoscopy X MULTIPLE History of total knee replacement right Social History Smoking Status: Never smoker Second Hand Exposure: Yes (as kid); Do You Dip or Chew Tobacco: No; Tobacco Cessation Education Requested by Patient: No Hx Alcohol Use: No Hx Substance Use: No Preferred Language: Occitan Communication Ability: Effective Director Immunology Required: No Beliefs That Will Affect Care: None marital status: Current Living Situation: Spouse Other Information That Helps Us Care for You: No Feels Safe at Home: Yes Safety Concerns: Feels Safe At This Time Assistive Devices: Glasses and Walker Review of Systems Constitutional: no fever and no chills Respiratory: no cough and no dyspnea Cardiovascular: no chest pain, no dyspnea and no orthopnea Gastrointestinal: no abdominal pain, no nausea and no vomiting Musculoskeletal: as per Subjective / HPI Physical Exam Physical Exam: HT: 5ft 8in WT: 100.7kg BP: 140/84 Constitutional: WD/WN, vitals as above no acute distress Respiratory: normal respiratory effort, lungs clear to auscultation no respiratory distress, no labored breathing and does not use accessory muscles Cardiovascular: RRR, no murmur, no edema Gastrointestinal (Abdomen): normal bowel sounds, soft, nontender, no hepatosplenomegaly Musculoskeletal: Knee: + knee abnormal to inspection (left knee- ), + effusion (+1 effusion), + limited ROM of knee (ROM 0/3/110), + knee ROM with crepitation, + joint line tenderness (medial joint line) and + Cathleen's sign positive; no deformity, no skin erythema, no ecchymosis, no valgus laxity, no varus laxity, anterior drawer test negative, Lyndsay's sign negative and pivot shift test nega tive Results & Data Results & Data ([place]) Diagnostic Findings Left Knee X-ray: left knee series confirms advanced degenerative changes to the left knee, greatest medial compartments and patellofemoral joint, showing joint space narrowing, osteophyte formation and subchondral sclerosis. no acute bony pathology noted.
--- NOTE | 2021-02-09 13:19 | Anesthesiology Consultation ---
Date of Service February 09, 2021 Assessment & Plan (1) Encounter for pre-operative examination: Chart Review Chart Review: Acceptable Risk for Surgery (pending preop Covid testing ) and Patient NOT seen in Pre Admission Testing Per nursing assessment 02/08/2021, patient resides in [facility]. Travels to [facility] for medical appts. Uses PPE. No known Covid positive contacts or Covid related symptoms. No known Covid infection in the past 90 days. Patient following up with surgeon for preop Covid testing = will await results. Seen by PCP 10/25/2020= seen for preop appointment. "CXR/EKG/labs reviewed. Patient is medically clear for proposed surgery." Right TKA 08/03/20= Done under [facility] and GA with LMA #5 iGel. Atraumatic insertion x 1. "Attempted SAB multiple times but unable secondary to bone and narrowing spaces" History Surgery Operation Date: 03/02/21 07:15 Proposed Procedures p Left Total Knee Arthroplasty - Pranay Pardo DO Height/Weight Height: 5 ft 8 in Weight: 100.698 kg Allergies Allergy/AdvReac Type Severity Reaction Status Date / Time No Known Allergies Allergy Verified 02/08/21 10:43 Medications Home Medications Medication Instructions Recorded Confirmed Last Taken diltiazem HCl 240 mg PO QAM 06/29/20 09/30/20 08/03/20 08:00 omeprazole 40 mg PO QAM 06/29/20 09/30/20 08/03/20 08:00 oxycodone 5 - 10 mg PO Q6H PRN #30 tab 08/04/20 09/30/20 Unknown Past Medical History Medical History Arthritis GERD (gastroesophageal reflux disease) Hyperlipidemia Per records Hypertension Past Surgical History Surgical History History of colonoscopy X MULTIPLE History of total knee replacement right Social History Smoking Status: Never smoker Do You Dip or Chew Tobacco: No Hx Alcohol Use: No Hx Substance Use: No substance use type: does not use Testing Laboratory Results Blood Type A Positive 02/04/21 10:01 Antibody Screen NEGATIVE 02/04/21 10:01 Laboratory Tests 02/04/21 02/04/21 02/04/21 09:57 09:57 09:57 WBC 7.74 Hgb 16.1 Hct 46.7 Plt Count 221 PT 10.3 INR 1.0 APTT 30.1 Sodium Potassium Chloride Carbon Dioxide BUN Creatinine Glucose Hemoglobin A1c 5.5 02/04/21 09:57 WBC Hgb Hct Plt Count PT INR APTT Sodium 139 Potassium 3.6 Chloride 108 H Carbon Dioxide 25 BUN 21 H Creatinine 1.04 Glucose 90 Hemoglobin A1c 02/04/2021 = UA: Trace leukocyte esterase, negative bacteria Electrocardiogram Date: 10/11/20 Findings: + NSR @ (64) Normal EKG. Chest X-Ray Date: 10/11/20 Findings: + NAD
[~2021-03-02 04:57] MED LIST changes: -BUPIVACAINE 0.5 % 5 MG/1 ML PF 10ML VIAL ONE; -CEFAZOLIN 2000MG 2,000 MG/15 ML SYR IV SCH; -EPINEPHrine INJ 1 MG/ML AMP ONE; +LR 15ML/HR IV SCH; -LR 500ML BOLUS, THEN 15ML/HR IV SCH; -ROPIVACAINE 0.5% 5 MG/ML 30 ML VIAL ONE; -ROPIVACAINE 0.5% HCL/PF 150 MG, BUPIVACAINE 0.5% MPF 30 ML, EPINEPHrine 30MG/30ML (OR U... INSTIL SCH; +ROPIVACAINE 0.5% HCL/PF 150 MG, BUPIVACAINE 0.75% MPF 20 ML, EPINEPHrine 30MG/30ML (OR ... INSTIL SCH; +ceFAZolin 2000MG 2,000 MG/15 ML SYR IV SCH; -dexAMETHasone 4 MG TAB PO SCH
[2021-03-02] MEDS ORDERED: ACETAMINOPHEN 500 MG TAB PO SCH (06:00)
[2021-03-02] MEDS ORDERED: CeleBREX 200 MG CAP PO SCH (06:00)
[2021-03-02] MEDS ORDERED: GABAPENTIN 300 MG CAP PO SCH (06:00)
[2021-03-02] MEDS ORDERED: ROPIVACAINE 0.5% HCL/PF 150 MG, BUPIVACAINE 0.75% MPF 20 ML, EPINEPHrine 30MG/30ML (OR ... INSTIL SCH (06:00)
[2021-03-02] MEDS ORDERED: TRANEXAMIC ACID 1,000 MG **IV Intra-op IV SCH (06:00)
[2021-03-02] MEDS ORDERED: METOCLOPRAMIDE HCL 10 MG TABLET PO SCH (06:00)
[2021-03-02] MEDS ORDERED: ceFAZolin 2000MG 2,000 MG/15 ML SYR IV SCH (06:00)
[2021-03-02] MEDS ORDERED: TRANEXAMIC ACID 1,000 MG **IV Pre-op IV SCH (06:00)
[2021-03-02] MEDS ORDERED: FAMOTIDINE 20 MG TAB PO SCH (06:00)
[2021-03-02] MEDS ORDERED: LR 500ML BOLUS, THEN 15ML/HR IV SCH (06:00)
[2021-03-02] MEDS ORDERED: EPINEPHrine INJ 1 MG/ML AMP ONE (06:17)
[2021-03-02] MEDS ORDERED: BUPIVACAINE 0.5 % 5 MG/1 ML PF 10ML VIAL ONE (06:17)
[2021-03-02] MEDS ORDERED: BUPIVACAINE 0.25% 30 ML VIAL ONE (06:18)
[2021-03-02] MEDS ORDERED: DEXAMETHASONE SOD INJ 4 MG/ML VIAL ONE ×2 (06:18→08:09)
[2021-03-02] MEDS ORDERED: BACITRACIN INJ 50,000 UNIT VIAL ONE (06:32)
[2021-03-02] MEDS ORDERED: ORTHO JOINT ANESTHETIC ONE (06:32)
[2021-03-02] MEDS ORDERED: PROPOFOL IV EMULSION 10 MG/ML 20 ML VIAL IV ONE (06:35)
[2021-03-02] MEDS ORDERED: fentaNYL citrate 100 MCG/2 ML VIAL ONE ×2 (06:35→07:26)
[2021-03-02] MEDS ORDERED: KETAMINE 50 MG/5 ML SYRINGE ONE (06:36)
[2021-03-02] MEDS ORDERED: MIDAZOLAM HCL 1 MG/ML 2ML VIAL ONE (06:36)
[2021-03-02] MEDS ORDERED: LIDOCAINE HCL 2% 2 ML VIAL/AMP(20MG/ML) INFIL ONE (06:36)
[2021-03-02] MEDS ORDERED: ONDANSETRON INJ 2 MG/ML 2 ML VIAL IV PRN ×2 (06:50→09:59)
[2021-03-02] MEDS ORDERED: HYDROmorphone INJ 2 MG/ML SYR/VIAL IV PRN (06:50)
[2021-03-02] MEDS ORDERED: fentaNYL citrate 100 MCG/2 ML VIAL IV PRN (06:50)
[2021-03-02] MEDS ORDERED: ePHEDrine sulfate 50 MG/ML AMP IV PRN (06:50)
[2021-03-02] MEDS ORDERED: ATROPINE SULFATE 0.1 MG/ML 10ML SYR IV PRN (06:50)
--- NOTE | 2021-03-02 07:06 | History & Physical Bridge Note ---
Date of Service March 02, 2021 History & Physical Bridge Note I have examined the patient, reviewed the History & Physical and in the interval since the performance of the History & Physical I have noted the following changes of clinical significance: no changes noted
[2021-03-02] MEDS ORDERED: ONDANSETRON INJ 2 MG/ML 2 ML VIAL ONE (08:09)
--- NOTE | 2021-03-02 08:22 | Operative Report ---
Post Operative Report Pre & Post Diagnosis Operation Date: 03/02/21 07:00 Pre-Op Diagnosis: Osteoarthritis Knee Left Post-Op Diagnosis: Osteoarthritis Knee Left I identified the patient and participated in the time-out.: Yes Procedure Operation Date: 03/02/21 07:00 Actual Procedures p Left Total Knee Arthroplasty, Cemented(Left) utilizing Arriaga [employer] VisiKard journey to nonblock total knee arthroplasty size 5 femur 4 tibia 9 polyethylene 32 oval patella- Pranay Pardo DO Surgeon Pranay Pardo DO Retail Supervisor Angel PALOMINO Estimated Blood Loss 5 Findings Consistent with Post-Op Diagnosis Patient presents with severe end-stage tricompartmental degenerative joint disease left knee with varus alignment subchondral sclerosis marginal osteophytes [id number] eburnated bone with moderate to large effusion left knee Specimens Bone and cartilage Drains Medium bore Hemovac Anesthesia Type General Regional Complications none Disposition Accompanied Patient To Recovery: No Disposition: Recovery Room Indications Patient presents with severe end-stage DJD left knee nonresponse to conservative management patient failed attempted corticosteroid injection Visco supplementation relative rest activity modification patient presents for total knee arthroplasty the above intraoperative findings noted time surgery. Description of Procedure After proper prepping and draping of the left lower extremity anterior midline incision was made over the region of the extensor extensor mechanism after meticulous hemostasis was obtained and maintained in subcutaneous tissues a medial parapatellar incision was made The patella was subluxed lateralward the medial lateral gutter were cleaned from any hypertrophic synovitis and scar tissue of the distal femoral block was placed and the distal femoral osteotomy cut was made subsequently the chamfers anterior and posterior osteotomy cuts were made utilizing the 4-in-1 block the tibia was subsequently subluxed anteriorward medial and ateral meniscal remnants were excised in their entirety remnants of the anterior and posterior cruciate ligaments were excised in their entirety excellent exposure of the proximal tibia was obtained the tibial osteotomy guide was placed on the proximal tibial osteotomy cut was made once again the knee was irrigated with copious amounts of sterile saline solution the patella was subsequently everted lateralward thickened scar tissue around the patella was removed the patella was subsequently cut utilizing a freehand technique and was drilled prepared for final preparation and placement of patella socially flexion-extension gaps were checked and the equal and symmetric trials were placed to the appropriate femoral and tibial trials with poly-spacer being placed for equal flexion and extension gaps and full range of motion including extension to 0 and flexion to 140 the trial components after having been taken to recovery range of motion was subsequently removed meticulous hemostasis was obtained and maintained subsequently a knee block injection of joint cocktail including ropivacaine 0.5% 150 mg. Bupivacaine 0.5% epinephrine 1-200,030 mL's toradol 30 mg dexamethasone 4 mg ketamine 10 mg clonidine 100 micrograms normal saline solution 30 mg was infiltrated into the soft tissues of the posterior knee medial lateral gutters and periosteal synovium special attention was paid to protect neurovascular structures at all times subsequently trial components having been removed the knee was irrigated with sterile saline solution. debris was removed the proximal tibia was subsequently prepared and was made ready for the placement of the tibial component tibial component was also cemented and tamped into position the femoral component was subsequently placed and cemented in the position the patellar component was subsequently cemented in position because hemostasis once again obtained and maintained wound having been thoroughly irrigated with debridement and debridement lavage was performed as well as a medial parapatellar incision closed with #1 Vicryl in interrupted fashion subcutaneous was closed with #2 Vicryl skin was closed with skin clips. PA-C was necessary for prepping and drapping as well as wound closure of deep fascia Sub cutaneous tissue and skin and was necessary for the case. A sterile compressive dressing was placed patient was taken to recovery in stable condition of report dictated by Edvin I attest to the content of the Intraoperative Record and any orders documented therein. Any exceptions are noted below. I attest to the content of the Intraoperative Record and any orders documented therein. Any exceptions are noted below.
--- NOTE | 2021-03-02 08:59 | Anesthesiology Progress Note ---
Date of Service March 02, 2021 Anesthesia Post Procedure Vital Signs Vital Signs: Temp Pulse Resp BP Pulse Ox 03/02/21 05:41 37 C 79 18 171/93 H 97 Transfer of Care Handoff Completed per policy Notes Mental Status: alert / awake / arousable Patient Amnestic to Procedure: Yes Nausea / Vomiting: adequately controlled Pain: adequately controlled Airway Patency, RR, SpO2: stable & adequate BP & HR: stable & adequate Hydration State: stable & adequate Neuraxial Anesthesia: was administered and sensory block is resolving Anesthetic Complications: no major complications apparent
--- NOTE | 2021-03-02 09:19 | XRay Report ---
XR knee LT 1 or 2V routine HISTORY: 65 years-old Male Surgical Post Op [total joint arthroplasty COMPARISON: None TECHNIQUE: 2 views of the left knee FINDINGS: Left knee total joint arthroplasty and patella resurfacing. Surgical drainage catheter with expected postoperative soft tissue swelling and deep tissue air. Satisfactory alignment without acute fracture or unexpected opaque foreign body. IMPRESSION: Left knee total joint arthroplasty and patella resurfacing with expected postoperative ch anges. ACT 112: Negative or not required by law. The above report was generated using voice recognition software. It may contain grammatical, syntax o r spelling errors. Electronically signed by: Gucci Batista M.D. 03/02/2021 9:17 AM
[2021-03-02] MEDS ORDERED: METOCLOPRAMIDE HCL INJ 5 MG/ML 2 ML VIAL IV PRN (09:59)
[2021-03-02] MEDS ORDERED: HYDROmorphone INJ 1 MG/ML SYRINGE IV PRN (09:59)
[2021-03-02] MEDS ORDERED: NALOXONE HCL 0.4 MG/1 ML VIAL/CARP IV PRN (09:59)
[2021-03-02] MEDS ORDERED: MAGNESIUM HYDROXIDE SUSP 30 ML UDC PO PRN (09:59)
[2021-03-02] MEDS ORDERED: diphenhydrAMINE Capsule 25 MG CAP PO PRN (09:59)
[2021-03-02] MEDS ORDERED: bisacodyL 10 MG SUPP PR PRN (09:59)
[2021-03-02] MEDS: SODIUM CHLORIDE 0.9% 1000ML 1,000 ML IV SCH ×2 (10:25→22:05)
[2021-03-02] MEDS: ASPIRIN 81 MG ECTAB PO SCH ×2 (10:48→19:41)
[2021-03-02] MEDS: dilTIAZem HCL 240 MG CAPCR PO SCH (11:00)
[2021-03-02] MEDS: DOCUSATE SODIUM 100 MG CAP PO SCH ×2 (11:04→19:41)
[2021-03-02] MEDS: oxyCODONE HCL IR 5 MG TAB (IMMEDIATE RELEASE) PO PRN ×3 (11:05→21:53)
[2021-03-02] MEDS: KETOROLAC TROMETHAMINE 15 MG/ML VIAL IV SCH ×2 (11:44→17:36)
[2021-03-02] MEDS: MULTIVITAMIN TAB PO SCH (12:18)
[2021-03-02] MEDS: ACETAMINOPHEN 500 MG TAB PO SCH ×2 (13:26→21:52)
[2021-03-02] MEDS: ceFAZolin 2000MG 2,000 MG/15 ML SYR IV SCH (17:36)
[2021-03-02] MEDS ORDERED: SENNA 8.6 MG TAB PO SCH (21:00)
[2021-03-03] MEDS: KETOROLAC TROMETHAMINE 15 MG/ML VIAL IV SCH ×2 (00:25→06:05)
[2021-03-03] MEDS: ceFAZolin 2000MG 2,000 MG/15 ML SYR IV SCH (00:26)
[2021-03-03] MEDS: ACETAMINOPHEN 500 MG TAB PO SCH (06:04)
[2021-03-03] MEDS: ASPIRIN 81 MG ECTAB PO SCH (08:37)
[2021-03-03] MEDS: DOCUSATE SODIUM 100 MG CAP PO SCH (08:37)
[2021-03-03] MEDS: dilTIAZem HCL 240 MG CAPCR PO SCH (08:38)
[2021-03-03] MEDS: MULTIVITAMIN TAB PO SCH (08:38)
[2021-03-03 08:39] LABS: Hematocrit (blood only) 37.9 % (42-52); Hemoglobin 13.2 g/dL (14.0-18.0); Mean Corpuscular Hemoglobin 30.8 pg (25-34); Mean Corpuscular Hgb Conc 34.8 g/dL (32-36); Mean Corpuscular Volume 88.6 fL (80-100); Mean Platelet Volume 10.5 fL (7.4-10.4); Platelet Count 238 K/uL (130-400); RDW Coefficient of Variation 14.6 % (11.5-14.5); RDW Standard Deviation 47.5 fL (36.4-46.3); Red Blood Count 4.28 M/uL (4.7-6.1); White Blood Count 17.62 K/uL (4.8-10.8)
--- NOTE | 2021-03-03 09:00 | Orthopedic Progress Note ---
Date of Service March 03, 2021 Assessment & Plan (1) Osteoarthritis of left knee: Postop day 1 status post left total knee arthroplasty. Leukocytosis-likely secondary to surgical stress and or preoperative steroids. Patient is currently asymptomatic. PT/OT protocols. Weightbearing as tolerated. DVT prophylaxis-aspirin p.o. twice daily, SCDs, BATOOL lyon. Pain management as written. BMP is pending DC planning-patient is planning for home health services upon discharge. Admission and Anticipated Discharge Date Admission Date: March 02, 2021 Subjective Postop day 1 Patient is currently sitting up in bed. No complaints this morning. Pain is controlled. Denies shortness of breath, chest pain, lightheadedness. Physical Exam Physical Exam: Dressings are clean, dry, and intact. Calves are soft nontender. Neurovascular intact. Toes are mobile. He has good dorsiflexion and plantarflexion of the left foot. Hemovac drainage was 175 mL from the previous shift. Results & Data ([facility]) Vital Signs (Past 12 Hours) Vital Signs Temp Pulse Resp BP Pulse Ox 03/03/21 07:26 36.9 C 76 16 137/70 94 03/03/21 04:31 36.8 C 75 16 133/68 92 03/02/21 22:52 36.9 C 75 16 123/76 92
[2021-03-03 09:07] LABS: BUN Creatinine Ratio 22.7 (10-20); Calcium 8.5 mg/dl (8.5-10.1); Creatinine Clr Calc Pharmacy 77.5 ml/min; Est GFR (African American) 79.5; Est GFR (Non-African American) 68.6; Potassium 4.3 mmol/L (3.5-5.1)
[2021-03-03] MEDS: oxyCODONE HCL IR 5 MG TAB (IMMEDIATE RELEASE) PO PRN (11:08)
[2021-03-03] MEDS ORDERED: CeleBREX 200 MG CAP PO SCH (21:00)
--- NOTE | 2021-03-04 08:25 | Discharge Summary ---
Date of Service date of discharge: March 03, 2021 date of admission: 03/02/21 Admission HPI Per Admitting Provider Obey is a 65 year old male who complains of left knee pain, presents for pre-op evaluation prior to a left total knee replacement by dr Pardo at [facility]. He complains of pain, decreased range of motion and stiffness in the left knee. He states that the symptoms have been chronic and non-traumatic. Currently the patient states that the symptoms are moderate-severe. The pain is described as aching, sharp and throbbing. his symptoms occur continuously. The symptoms are aggravated by ascending stairs, daily activities, first steps while awake walking. Prior NSAIDs include IBU and Aleve. he has been treated with previous visco and cortisone injections in the past without much relief. He just had his right knee replaced about 2 months ago and is doing well. Principal Diagnosis left knee arthritis Discharge Exam Vital Signs Temp 36.7 C 03/03/21 12:19 Pulse 72 03/03/21 12:19 Resp 16 03/03/21 12:19 BP 148/74 H 03/03/21 12:19 Pulse Ox 93 03/03/21 12:19 Intake & Output 03/03/21 03/04/21 03/04/21 18:59 06:59 18:59 Weight 105.772 kg Other: # Unmeasured Voids 1 Constitutional WD/WN, vitals as above no acute distress Musculoskeletal left knee: NVDI, calf SNT, negative shaina sign. DP palpable, able to wiggle toes/ankle movement without difficulty. Prinea dressing clean dry and intact. expected post-operative bruising noted. Discharge Data Allergies Allergy/AdvReac Type Severity Reaction Status Date / Time No Known Allergies Allergy Verified 03/02/21 05:33 Procedures Performed Operation Date: 03/02/21 07:00 Actual Procedures p Left Total Knee Arthroplasty, Cemented(Left) - Pranay Pardo DO Ordered Studies 11/09/20 05:00 US - OR guided needle placemen Routine 03/02/21 05:00 US - OR guided needle placemen Routine Hospital Course (1) Osteoarthritis of left knee: Postop day 1 status post left total knee arthroplasty. Leukocytosis-likely secondary to surgical stress and or preoperative steroids. Patient is currently asymptomatic. PT/OT protocols. Weightbearing as tolerated. DVT prophylaxis-aspirin p.o. twice daily, SCDs, BATOOL hose. Pain management as written. BMP is pending DC planning-patient is planning for home health services upon discharge. Total Time Total Time Spent Total Time Spent (In Minutes): 20 Total Time Includes: Examination of the Patient, Discharge Planning and Medication Reconciliation Discharge Plan Discharge Items Patient Disposition: Home - Home Health Services Reason For Visit: Osteoarthritis Knee Left Discharge Diagnosis: left total knee replacement Activity: Per Instructions section Lifting: Wait until after follow-up appointment Weightbearing Comment: WBAT with walker Non-emergency contact: Surgeon Call non-emergency contact if: you have any medication questions, your temperature is above 101, your wound has increased redness, your wound has increased drainage and your wound pain has increased Follow-up/Referrals: Mecca George D.O. [Primary Care Provider] - Diet: Regular Addtl Attending Provider Instructions: ACTIVITY RECOMMENDATIONS: SELF CARE INSTRUCTIONS AFTER TOTAL KNEE REPLACEMENT A. You may need to continue a physical therapy program after discharge from the hospital. There are several options available to you. Your doctor will assist you in selecting the best one for you. 1. An out-patient facility 2 to 3 times a week for therapy or home therapy. 2. Continue working on all exercises taught to you in the hospital. Your goals should be to increase bending of your knee to 90 degrees and beyond and to fully straighten your knee. B. You may progress at your own pace from walking with a walker or crutches to a cane; then to no assistive devices. C. Make walking a part of your daily routine. Be up as much as comfortable with rest periods throughout the day. Rest with leg elevation is very important. Use the ice wrap frequently for the first 3-4 weeks. D. There are no restrictions on activities. You may ride in a car, shop, participate in burn nurse and all social activities. E. Wear the long elastic stockings (BATOOL hose) 20 hours a day for 2 weeks after surgery. They can be removed several times a day for laundering and for a bath. F. You may shower, no tub baths until cleared by your doctor. SPECIAL CARE INSTRUCTIONS: VERY IMPORTANT TO READ AND REVIEW A. There are a few signs you need to watch for after you are home. Call [facility] if you notice any of the followin. Increased severe knee pain. Some pain is expected especially when you exercise. 2. Increased swelling in your leg or knee; pain or swelling of the calf muscle in either lower leg. 3. Any fluid drainage from the incision. 4. Shortness of breath or chest pain. B. Please call [facility] at if you have any concerns or questions about your operation or recovery. The doctor or his nurse will return your call promptly. C. You must take antibiotics before dental work, bladder, bowel or other surgery. Your doctor will provide you with a permanent care to carry describing this precaution. IMPORTANT: * REMEMBER TO TAKE ASPIRIN, 81 MG, TWICE DAILY FOR 4 WEEKS UNLESS OTHERWISE DIRECTED. THIS IS YOUR BLOOD THINNER. * HIGH RISK PATIENTS MAY BE PRESCRIBED A STRONGER BLOOD THINNER. THIS WILL BE PROVIDED AT DISCHARGE. * CALL IF INCREASED PAIN, REDNESS, DRAINAGE OR FEVER GREATER THAT 101. * WEAR BATOOL HOSE 20 HOURS PER DAY FOR 2 WEEKS. * DERMABOND Prineo- This is a mesh tape dressing that is covered with glue. It should remain in place until the incision is properly healed, usually 10-14 days. This dressing is designed to naturally slough off. You may trim the excess mesh tape as it peels off. Incision may be briefly wet in a shower. Dry immediately by blotting with a clean, dry towel. Do not bath or swim until instructed by your doctor. Do not scratch, rub, or pick at the dressing. Do not apply any topical ointments or lotions until dressing is completely removed and/or instructed by your doctor. There may be a small piece of suture material at one end of your incision. Do not pull or trim this. If it is bothersome or catching on clothing, you may cover it with a band-aid. IF INCISION IS LEAKING THROUGH DRESSING, CALL THE OFFICE . FOLLOW UP VISIT: If appointment is not already scheduled: Please call [facility] to make a follow-up appointment for 2 weeks after your surgery at . Stand-Alone Forms: [employer], Smoking Cessation Medications and DC Order Prescriptions: New celecoxib [Celebrex] 200 mg Capsule 200 mg PO BID 14 Days Qty: 28 RF: 0 aspirin 81 mg Tablet,Delayed Release (Dr/Ec) 81 mg PO BID 30 Days Qty: 60 RF: 0 acetaminophen 500 mg Tablet 1,000 mg PO Q8 14 Days Qty: 84 RF: 0 polyethylene glycol 3350 [Miralax] 17 gram powder in packet 17 g PO DAILY PRN (Reason: constipation) Qty: 5 RF: 0 cefadroxil 500 mg capsule 500 mg PO BID Qty: 14 RF: 0 oxycodone 5 mg Tablet 5 mg PO Q4H MDD 6 PRN (Reason: pain) Qty: 30 RF: 0 Continued diltiazem HCl 240 mg Capsule,Extended Release 24 Hr 240 mg PO QAM RF: 0 omeprazole 40 mg Capsule,Delayed Release(Dr/Ec) 40 mg PO QAM RF: 0 Discontinued oxycodone 5 mg Tablet 5 - 10 mg PO Q6H PRN (Reason: pain) Qty: 30 RF: 0 Discharge Orders: Discharge Order (Routine); Ordered 03/03/21 Ordered By: Mitch Morfin/Other Patient Handouts: Knee Replacement Total Dc Admission Data Admit Date/Time: 03/02/21 09:01 Attending Provider: Pranay Pardo Admit Provider: Pranay Pardo Primary Care Provider: Mecca George Other Interventions: Discharge Summary Assessment (RN) Last Done: 03/03/21 12:19
== END 2021-03-03 13:56 | disposition home health service (06) ==
LOC: 3W 04:57 → ASU 04:57